=== PATIENT | female | born 1985 | race Caucasian/White ===

== ENCOUNTER 2021-08-05 08:58 | Outpatient (REF) | payer OTHER, SELFPAY ==
[2021-08-05 11:52] LABS: Appearance Urine CLOUDY; Color Urine YELLOW; Glucose Urine UA NEG (NEG); Leukocyte Esterase Urine NEG (NEG); Nitrite Urine NEG (NEG); PH 7.5 (5.0-8.0); Specific Gravity - Urine 1.015 (1.005-1.025); Urine Blood 3+ (NEG); Urine Ketones NEG (NEG); Urine Protein TRACE MG/DL (NEG-TRACE)
[2021-08-05 11:53] LABS: Hematocrit 41.2 % (37.0-47.0); Hemoglobin 13.4 g/dl (12.0-16.0); Mean Corpuscular HGB Conc 32.5 g/dl (31.0-35.0); Mean Corpuscular Hemoglobin 29.9 pg (27.0-33.0); Mean Platelet Volume 10.2 fL (9.4-12.3); Platelet Count 339 X10*3/uL (160-400); Red Blood Count 4.48 X10*6/uL (4.20-5.50); Red Cell Distribution Width 12.7 % (11.0-16.0); White Blood Count 6.6 X10*3/uL (4.8-10.8)
[2021-08-05 12:16] LABS: Alanine Aminotransferase 25 U/L (0-31); Albumin Level 4.2 g/dL (3.5-5.0); Alkaline Phosphatase 62 U/L (39-117); Anion Gap 13 (12-20); Aspartate Amino Transferase 23 U/L (5-31); Bilirubin Total 0.4 mg/dL (0.0-1.0); Blood Urea Nitrogen 13 mg/dL (9-16); Carbon Dioxide 22 mmol/L (22-29); Chloride 108 mmol/L (96-108); Cholesterol 141 mg/dL; Estimated Glomerular Filt Rate > 60; Glucose Fasting 96 mg/dL (60-99); HDL Cholesterol 48 mg/dL; LDL Cholesterol Calculated 80 mg/dl; Potassium 4.3 mmol/L (3.3-5.1); Sodium 139 mmol/L (135-145); Total Protein 6.7 g/dL (6.5-8.0); Triglycerides 66 mg/dL
[2021-08-05 13:16] LABS: Amorphous Sediment Urine 2+ /LPF; Squamous Epithelial Cell Urine 1+ /LPF; WBC Urine 0 /HPF (0-4)
[2021-08-05 13:17] LABS: Bacteria Urine 1+ /LPF
== END 2021-08-05 08:59 | disposition home or self-care (01) ==
LOC: HO.HMGCLDS 08:58
PROVIDERS: PCP Internal Medicine; Visit Provider Internal Medicine
DX: Z00.00 Encounter for general adult medical examination without abnormal findings (principal); E66.3 Overweight
CPT/HCPCS: 36415; 80053; 80061; 81001; 85027

== ENCOUNTER 2021-08-29 13:50 | Outpatient (REF) | payer OTHER, SELFPAY ==
[2021-08-29 16:20] LABS: Appearance Urine CLOUDY; Color Urine YELLOW; Glucose Urine UA NEG (NEG); Leukocyte Esterase Urine NEG (NEG); Nitrite Urine NEG (NEG); Urine Blood 3+ (NEG); Urine Ketones NEG (NEG); Urine Protein NEG (NEG-TRACE)
[2021-08-29 16:26] LABS: Amorphous Sediment Urine 4+ /LPF; Calcium Oxalate Crystals Urine 3+ /LPF; RBC Urine 0 /HPF (0); Squamous Epithelial Cell Urine 1+ /LPF; WBC Urine 0 /HPF (0-4)
== END 2021-08-29 13:51 | disposition home or self-care (01) ==
LOC: HO.HMGCLDS 13:50
PROVIDERS: Visit Provider Internal Medicine
DX: R31.9 Hematuria, unspecified (principal)
CPT/HCPCS: 81001

== ENCOUNTER 2023-01-22 09:22 | Outpatient (AMB) | payer OTHER, SELFPAY ==
--- NOTE | 2023-01-22 09:29 | A.OFFPC_ITS ---
Vital Signs 01/22/23 09:30 Height 5 ft 6 in Weight 251 lb BMI 40.5 BP 108/68 Blood Pressure Location Lt brachial Position Sitting Pulse 98 Pulse Source Pulse Oximeter Pulse Oximetry (%) 99 Oxygen Delivery Method Room Air Intake Visit Reasons: Annual Physical Intake Note: Pt is here today for PE. Allergies azithromycin Allergy (Unknown, Verified 01/22/23 09:32) stomach upset Medication List - Last Reconciled 01/22/23 by Nan Madison MD albuterol sulfate 90 mcg/actuation 2 puffs inhalation Q6H PRN buspirone 7.5 mg PO BID cholecalciferol (vitamin D3) 25 mcg PO DAILY clobetasol 0.05% 1 appl topical BID 2 weeks magnesium 250 mg PO DAILY multivitamin 1 tab PO DAILY omeprazole 20 mg PO DAILY Tobacco use date assessed: 01/22/23 Dental Screening Dental Screen Date: 01/22/23 Did you have a dental visit in the last 12 months?: Yes Did you have a dental problem in the last 6 months where you did not have access to dental care?: No Was dental information given to patient?: Patient has dentist HPI Annual Physical HPI Details Pt presents for PE. Pt is trying to get working with her gynecology teacher. She complains of more frequent heartburn worse at night when laying down. Patient has been taking Pepcid AC without sustained relief. Patient denies odynophagia dysphagia hematochezia melena. 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 Patient denies pain at rest or soft tissue swelling. Patient follows up with therapist for chronic anxiety and depression and denies suicidal ideation. She is planning to see a prescriber to discuss ADHD treatment. [facility] Medical History (Updated 01/22/23 @ 10:25 by Nan Madison MD) Hematuria Normal pelvic exam Anxiety Insomnia Overweight Annual physical exam Family History Father ADHD Mother Substance use disorder Mental health disorder Maternal Grandmother Substance use disorder Esophageal cancer Maternal Uncle Esophageal cancer Maternal Aunt Breast cancer Social History Housing: House Patient Tobacco Use Status: Former Tobacco user e-Cigarette/Vaping Use: Never Used Second Hand Smoke Exposure: No service: No Current occupational status: employed Cognitive needs: No Hearing needs: No Vision needs: Yes Questionnaire PHQ-9 Over the last 2 weeks, how often have you been bothered by any of the following problems? 1. Little interest or pleasure in doing things: more than half the days 2. Feeling down, depressed, or hopeless: several days 3. Trouble falling or staying asleep, or sleeping too much: nearly every day 4. Feeling tired or having little energy: nearly every day 5. Poor appetite or overeating: nearly every day 6. Feeling bad about yourself - or that you are a failure or have let yourself or your family down: several days 7. Trouble concentrating on things, such as reading the newspaper or watching television: more than half the days 8. Moving or speaking so slowly that other people could have noticed. Or the opposite - being so fidgety or restless that you have been moving around a lot more than usual: several days 9. Thoughts that you would be better off or of hurting yourself in some way: not at all Total score: 16 Depression Screening Interpretation: Positive 61522 - PHQ-9 Billing: Yes Source: Developed by Drs. Ezra Peoples, Ade Marquez, David Fried and colleagues, with an educational kerry from [employer]. Thrive Questionnaire Date Thrive assessed: 01/22/23 I am a: Patient What is your living situation today?: I have a steady place to live Within the past 12 months, did the food you bought not last and you didn't have the money to get more?: Never true Within the past 12 months, did you worry whether your food would run out before you got money to buy more?: Never true Do you have trouble paying for medicines?: No Do you have trouble getting transportation to medical appointments?: No Do you have trouble paying your heating and electricity bill?: No Do you have trouble taking care of your child, family member or friend?: No Do you have trouble with day-to-day activities such as bathing, preparing meals, shopping, managing finances, etc.?: Yes Are you currently unemployed and looking for a job?: No Are you interested in more education?: No Currently or been in a relationship where the following occur: no concerns reported AUDIT C Alcohol Use Questionnaire (AUDIT-C) 1. How often do you have a drink containing alcohol?: 2-3 times a week 2. How many drinks containing alcohol do you have on a typical day when you are drinking?: 3 or 4 3. How often do you have six or more drinks on one occasion?: Never Total Score: 4 MADISON-7 AMB Questionnaire MADISON-7 Date MADISON - 7 assessed: 01/22/23 Feeling nervous, anxious, or on edge: 2 = More than half the days Not being able to stop or control worryin = More than half the days Worrying too much about different things: 2 = More than half the days Trouble relaxin = Nearly every day Being so restless that it is hard to sit still: 2 = More than half the days Becoming easily annoyed or irritable: 1 = Several days Feeling afraid as if something awful might happen: 1 = Several days Total MADISON-7 score (0-4 normal; 5-9 mild; 10-14 moderate; 15-21 severe): 13 Source: Developed by Drs. Ezra Peoples, Ade Marquez, David Fried and colleagues, with an educational kerry from [employer]. Review of Systems Const All systems reviewed & are unremarkable except as noted in HPI and below Reports no additional complaints Eyes Reports no additional complaints Card Reports no additional complaints Resp Reports no additional complaints GI Reports no additional complaints Reports no additional complaints Physical exam (Primary Care) Vital Signs: Last Vital Signs Pulse 98 01/22/23 09:30 BP 108/68 01/22/23 09:30 Pulse Ox 99 01/22/23 09:30 Oxygen Delivery Method Room Air 01/22/23 09:30 BMI result Body Mass Index 40.5 Tobacco/Smoking Status: Tobacco use Status Tobacco use date assessed 01/22/23 01/22/23 09:38 Patient Tobacco Use Status Former Tobacco user 01/22/23 09:29 e-Cigarette/Vaping Use Never Used 01/22/23 09:29 PHQ-9: PHQ-9 Score PHQ-9: Total score 16 01/22/23 10:18 Depression Screening Interpretation: Positive Thrive Assessment: Date of Thrive Assessment Date Thrive assessed 01/22/23 01/22/23 10:14 Currently or been in a relationship where the following occur: no concerns reported Const General: no acute distress HENMT Head: Yes normal to inspection Ears: hearing grossly normal bilaterally Face and sinus: Yes normal facial exam Mouth: Normal oral and palatal mucosa present Teeth and gingiva: dentition normal Eyes General: appearance normal, both eyes and all related structures Neck Neck: Yes no lymphadenopathy and Yes supple Resp Effort & Inspection: normal respiratory effort Auscultation: clear to auscultation bilaterally Cardio Rhythm: regular rhythm Heart sounds: S1 normal heart sound present and S2 normal heart sound present GI Inspection: Yes normal to inspection Palpation (GI): Soft to palpation Percussion: Yes normal to percussion Auscultation: normal bowel sounds Extrem Other: reproducible tenderness in the lateral dorsum of left foot, there is no soft tissue swelling erythema warmth Assessment and Plan Assessment & Plan (1) Annual physical exam: Code(s): Z00.00 - Encounter for general adult medical examination without abnormal findings Plan: Well-balanced diet and regular physical activity discussed with the patient. she will return for fasting blood work. Patient follow-up with gynecology teacher for annual pelvic and Pap (2) Overweight: Code(s): E66.3 - Overweight (3) Foot pain, left: Code(s): M79.672 - Pain in left foot Plan: Referred to physical therapy (4) GERD (gastroesophageal reflux disease): Code(s): K21.9 - Gastro-esophageal reflux disease without esophagitis Plan: Lifestyle modification discussed with the patient. Omeprazole 20 mg for 2 months is prescribed Orders: Orders Comprehensive [place]. Panel Fast Today E66.3 - Overweight, Z00.00 - Encounter for general adult medical examination without abnormal findings Complete Blood Count Auto Diff Today E66.3 - Overweight, Z00.00 - Encounter for general adult medical examination without abnormal findings Lipid Panel Today E66.3 - Overweight, Z00.00 - Encounter for general adult medical examination without abnormal findings TSH reflex Free T4 Today E66.3 - Overweight, Z00.00 - Encounter for general adult medical examination without abnormal findings PT Evaluation and Treatment Today M79.672 - Pain in left foot Medications: New omeprazole 20 mg PO DAILY 30 caps 1RF clobetasol 0.05% 1 appl topical BID 30 grams 0RF 2 weeks Coding Level of Care Code Est Pt Prev Care 18-39y(54068) Diagnoses Annual physical exam Z00.00 Overweight E66.3 Foot pain, left M79.672 GERD (gastroesophageal reflux disease) K21.9
[2023-01-22 09:30] VITALS: BP 108/68; PULSE 98; O2SAT 99; BMI 40.5
== END 2023-01-22 10:29 | disposition home or self-care (01) ==
PROVIDERS: PCP Internal Medicine; Visit Provider Internal Medicine
DX: Z00.00 Encounter for general adult medical examination without abnormal findings (principal); E66.3 Overweight; M79.672 Pain in left foot; K21.9 Gastro-esophageal reflux disease without esophagitis
CPT/HCPCS: 99395

== ENCOUNTER 2023-05-04 07:00 | Outpatient (RCR) | payer OTHER, SELFPAY ==
--- NOTE | 2023-04-20 10:46 | MHC.PT.EP ---
[facility] [place] Office [place] Office [place] Office [address] [phone] F: [phone] F: [phone] F: [phone] F: [phone] Physical Therapy Plan of Care Date of Evaluation: 04/20/23 Date of Surgery: n/a Diagnosis: pain in L foot Assessment: Patient is a 37 year old female presenting to PT with complaints of pain in her L foot. Pt reports onset of pain began about 9 months ago due to insidious onset. She presents today with impairments in pain, ankle strength, balance. 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 Pt expresses residential goal of reducing pain, and is motivated to work towards this in PT. Clinical presentation today is most consistent with signs and sx associated with L foot pain and pt will benefit from skilled PT 2 week x 4 weeks to address the following problems and impairments noted upon evaluation: pain, ankle strength, balance. These problems limit the patient with the following functional activities: ADLs, ambulating. The prescribed treatment plan of care is medically necessary. Co-morbidities of none were identified and taken into considerations of plan of care. Pt was educated on HEP, role of PT, prognosis, POC. Frequency and Duration: The patient will be seen 2 x week x 4 weeks Short Term Goals: Pt will demonstrate ability to perform SLS with no pain in 2 weeks. Pt will demonstrate improved inversion and eversion MMT strength by 1/3 grade in 2 weeks. Robotics Specialist Goals: Pt will demonstrate improved LEFI score by 9 points in 4 weeks for improved functional mobility. Pt will demonstrate ability to ambulate community distances with min to no pain in 4 weeks for return to PLOF. Treatment Plan: Modalities to reduce pain, spasms and effusion. Manual therapy to restore motion and function. Therapeutic exercise to improve strength and flexibility. Neuromuscular re-education for posture and balance. Therapeutic activities to return to functional activities of daily living. Electronically signed by: Beverley Sequeira, PT, DPT, ATC Please sign and return to therapist. Thank you for your referral.
--- NOTE | 2023-06-04 13:58 | MHC.PT.DC ---
[facility] [place] Office [place] Office [place] Office [address]ine Valera [address] [phone] F: [phone] F: [phone] F: [phone] F: [phone] Physical Therapy Discharge Report Diagnosis: pain in L foot Date of Surgery: n/a Date of Evaluation: 04/20/23 Date of Discharge: 06/04/23 Treatments to Date: 3 Cancellations to Date: 1 No Shows to Date: 0 Discharge Status: Discharge Summary: Pt has not returned to skilled PT in >30 days. Pt to be d/c per policy. Electronically signed by: Beverley Sequeira, PT, DPT, ATC Please sign and return to therapist. Thank you for your referral.
== END 2023-06-04 13:58 | disposition home or self-care (01) ==
LOC: HO.PTCHIC 07:00
PROVIDERS: PCP Internal Medicine; Visit Provider Internal Medicine
DX: M79.672 Pain in left foot (principal)
CPT/HCPCS: 97110; 97112; 97161

== ENCOUNTER 2024-12-26 11:15 | Outpatient (AMB) | payer OTHER, SELFPAY ==
[2024-12-26 12:05] VITALS: BP 96/66; PULSE 73; TEMP 36.7; O2SAT 97; BMI 39.4
--- NOTE | 2024-12-26 12:05 | MHC.OFFWIV ---
Intake Vital Signs 12/26/24 12:05 Height 5 ft 6 in Weight 244 lb BMI 39.4 BP 96/66 Blood Pressure Location Rt brachial Position Sitting Pulse 73 Pulse Source Pulse Oximeter Temp 98.1 F Temp Source Oral Pulse Oximetry (%) 97 Oxygen Delivery Method Room Air Intake Visit Reasons: ep pain in neck upper back shoots down lft arm Patient Tobacco Use Status: Former Tobacco user Allergies azithromycin Allergy (Unknown, Verified 12/26/24 12:07) stomach upset Do you need a note to return to daycare/school/sports/work: No HPI ep pain in neck upper back shoots down lft arm HPI Details This is a 39-year-old female patient who presents to the walk-in clinic today with a 6 day history of left-sided neck pain with radiation down her left arm. She denies any inciting events or trauma to this. She denies any recent heavy lifting. Pain is worse with left side bending and flexion. She reports a constant dull ache on the inner aspect of her left upper arm, and occasionally, pain will shoot down arm and extend to left 4th and 5th digits. She denies any weakness. Denies any other complaints today. [facility] Medical History Hematuria Normal pelvic exam Anxiety Insomnia Overweight Annual physical exam Family History Father ADHD Mother Substance use disorder Mental health disorder Maternal Grandmother Substance use disorder Esophageal cancer Maternal Uncle Esophageal cancer Maternal Aunt Breast cancer Social History Housing: House Patient Tobacco Use Status: Former Tobacco user e-Cigarette/Vaping Use: Never Used Second Hand Smoke Exposure: No service: No Current occupational status: employed Cognitive needs: No Hearing needs: No Vision needs: Yes Review of Systems Const All systems reviewed & are unremarkable except as noted in HPI and below Physical Exam Vital Signs: Last Vital Signs Temp 98.1 F 12/26/24 12:05 Pulse 73 12/26/24 12:05 BP 96/66 12/26/24 12:05 Pulse Ox 97 12/26/24 12:05 Oxygen Delivery Method Room Air 12/26/24 12:05 BMI result Body Mass Index 39.4 Const General: cooperative, healthy appearing, comfortable and no acute distress HEENT Head: Yes normal to inspection and Yes normocephalic Ears: hearing grossly normal bilaterally General nose exam: Normal external nose present Neck Neck: Yes no lymphadenopathy Resp Effort & Inspection: normal respiratory effort Cardio Rate: regular rate Rhythm: regular rhythm Back/Spine/Pelvis Other: reported pain in medial aspect of left upper arm with radiation down to left 4th/5th digit. Negative spurling, Increased pain in that distribution with cervical left side bending, right lateral rotation. Left trap/rhomboid tautness/tenderness. Skin General skin exam: no rashes or lesions noted Neuro General: tone normal, moves all extremities and no focal motor deficits Extrem General: Yes capillary refill normal and Yes no clubbing, cyanosis or edema Psych Appearance: grossly normal Mental Status: mental status grossly normal Speech and movement: Normal speech and movement present Assessment & Plan Assessment & Plan (1) Left cervical radiculopathy: Code(s): M54.12 - Radiculopathy, cervical region Plan: Symptoms consistent with a left C7/T1 radiculopathy. We discussed conservative measures for treatment at this time, including NSAIDs, which I have prescribed, gentle stretching, heat application, possible course of physical therapy. Patient is going to try these at home, and if she does not improve with these conservative measures, she will contact her PCP for physical therapy referral. If this persists, she may benefit from seeing a spine or automotive painter helper for further imaging/evaluation and possible injection therapy. In the meantime, if symptoms worsen or new symptoms develop, she can return to the clinic or the emergency department for evaluation. Patient verbalizes understanding and agrees to plan. Medications: New meloxicam Take 1 tablet by mouth daily for 7 days 15 mg PO DAILY 7 tabs 0RF 7 days M54.12 - Radiculopathy, cervical region Coding Level of Care Code Est Pt Level 4 (67597) Diagnoses Left cervical radiculopathy M54.12
--- OUTSIDE RECORDS SUMMARY | 2024-12-26 12:24 | XMS_ITS | Encounter Summary ---
Author Organization Merged With [facility] Address [address] [place] [phone] Phone Care Team Providers Care Sample Processor Name Role Phone Live Delcid MD Primary Care Provide r Encounter Details Date Type Department Care Team (Late st Contact Info) Description 07/06/2016 Ophth Exam [facility] [address] [place] [address] Laith Vora MD, MPH [address] [place] [address] [email or web address] Social History Tobacco Use Types Packs/Day Years Used Date Smoking Tobacco: Heavy Smoker Alcohol Use Standard Drinks/Week Comments Yes 0 (1 standard drink = 0.6 oz pur e alcohol) social Comments Unknown Sex and Gender Information Value Date Recorded Sex Assigned at Not on file Legal Sex Female 6:53 PM EST Gender Identity Not on file Sexual Orientation Not on file documented as of this encounter Plan of Treatment Not on file documented as of this encounter Visit Diagnoses Not on filedocumented in this encounter Care Teams Sample Processor Relationship Specialty Start Date End Date Live Delcid MD [address] [place] [address] [email or web address] PCP - General 05/18/16 documented as of this encounter Additional Source Comments The information contained in this document represents components of the legal health record. It is not the complete legal health record.[facility]
--- OUTSIDE RECORDS SUMMARY | 2024-12-26 12:24 | XMS_ITS | Clinical Summary ---
Author Organization [facility] [address] [place] [address] Address [address] [facility] [place] [address] Phone Care Team Providers Care Valve Pipe Irrigator Name Role Phone Norman Rodriguez MD Primary Care Provider Allergies Active Allergy Reactions Criticality Noted Date Comments Azithromycin Diarrhea,Nausea And Vomiting High 04/17 Medications omeprazole OTC (PriLOSEC OTC) 20 mg EC tablet Take 1 tablet (20 mg total) by mouth 1 (one) time each day. Do not crush, chew, or split. Active multivitamin with minerals tablet Take 1 tablet by mouth 1 (one) time each day. Active cetirizine (ZyrTEC) 10 mg tablet Take 1 tablet (10 mg total) by mouth 1 (one) time each day. [employer] brand Active FreeStyle Lite Meter monitoring kitIndications: New onset type 2 diabetes mellitus (CMS/HCC V24, CMS/HCC V28) 1 each 3 (three) times a week. Use to test blood sugar 3 times per week 1 each 08/29/2024 08/30/19 26 Active blood sugar diagnostic (FreeStyle Lite Strips) test stripIndication s:New onset type 2 diabetes mellitus (CMS/HCC V24, CMS/HCC V28) Use ti test blood sugar 3 times a week 100 each 3 08/28/2024 08/29/19 26 Active FreeStyle Lancets 28 gauge lancetsIndicati ons:New onset type 2 diabetes mellitus (CMS/HCC V24, CMS/HCC V28) Use to test blood sugar 3 times a week 100 each 3 08/28/2024 08/29/19 26 Active sertraline (ZOLOFT) 25 mg tablet TAKE 2 TABLETS BY MOUTH 1 TIME EACH DAY. 180 tablet 1 11/24/2024 Active ibuprofen (ADVIL,MOTRIN) 600 mg tablet Take 1 tablet (600 mg total) by mouth every 6 (six) hours if needed. for mild pain 10/11/2024 Active albuterol sulfate 90 mcg/actuation aerosol powdr breath activated Inhale by mouth. 05/12/2019 Active Hospital, Clinic, or Other Facility Administered Medication Ordered Dose Route Frequency Start Date End Date Status lidocaine (PF) (XYLOCAINE-MPF) 1 % injection 0.5 mLIndications:Planta r fascial fibromatosis .5 mL inj Once PRN Procedure 12/01/2024 12/01/2024 Ended triamcinolone acetonide (KENALOG-40) 40 mg/mL injection 20 mgIndications:Planta r fascial fibromatosis 20 mg IAtc Once PRN Procedure 12/01/2024 12/01/2024 Ended Active Problems Problem Noted Date Diagnosed Date Type 2 diabetes mellitus wit h morbid obesity ([facility] V24, [facility] V28) 11/25/2024 New onset type 2 diabetes me llitus ([facility] V24, [facility] V28) 08/26/2024 Asthma 08/13/2024 Persistent depressive disorder 07/15/2024 Gastroesophageal reflux disease 07/15/2024 Encounters Date Type Department Care Team Description 12/01/2024 2:45 PM EDT Office Visit Orthopedic Surgery - [address] [phone] Lester Schwartz DPM Tendinitis of left ankle (Primary Dx); Follow-up exam; Plantar fascial fibromatosis; Arthritis of left ankle; Metatarsalgia of both feet; Metatarsalgia of left foot 11/25/2024 1:00 PM EDT Office Visit Adult Medicine [address] [phone] Norman Rodriguez MD New onset type 2 diabetes mellitus ([facility] V24, [facility] V28) (Primary Dx); Need for vaccination against Streptococcus pneumoniae; Type 2 diabetes mellitus with morbid obesity ([facility] V24, [facility] V28) 11/18/2024 2:40 PM EDT Office Visit Gastroenterology [facility] [address] [facility] [address] [place] [phone] Cele Zimmerman PA Hiatal hernia with GERD without esophagitis (Primary Dx) 10/23/2024 10:45 AM EDT Office Visit Orthopedic Surgery [facility] [address] [facility] [address] [place] [phone] Lester Schwartz, DPM Metatarsalgia of left foot (Primary Dx); Metatarsalgia of both feet; Tendinitis of left ankle; Plantar fascial fibromatosis; Arthritis of left ankle from Last 3 Months Immunizations Name Administration Dates Next Due Pneumococcal conjugate 20 va lent (Prevnar 20, PCV 20) 2mo and older 11/25/2024 Tdap Tetanus diptheria acell ular pertussis (Boostrix; Adacel) 7yo and older 07/15/2024 Surgical History Surgery Date Site/Laterality Comments LASIK Medical History Medical History Date Comments Depression GERD (gastroesophageal reflux disease) Asthma Family History Medical History Relation Name Comments Diabetes type II Father abnormal pap smear Sister Relation Name Status Comments Father Sister Social History Tobacco Use Types Packs/Day Years Used Date Smoking Tobacco: Former Cigarettes Q uit: 07/15/2018 Smokeless Tobacco: Former Tobacco Cessation:Counseling Given: Not Answered Alcohol Use Standard Drinks/Week Comments Yes 0 (1 standard drink = 0.6 oz pur e alcohol) socially 1-2 drinks/week Housing Instability Answer Date Recorde d Are you worried that in the next 2 months you may not have stable housing? No 07/15/2024 Food Access & Nutrition Answer Date Rec orded Do you have access to a vari ety of food including fruits and vegetables? Yes 07/15/2024 Access to Healthcare Answer Date Record ed Within the last 3 months, james mata many times did you visit the emergency department for your medical care? 0 07/15/2024 Financial Risk Answer Date Recorded How hard is it for you to pa y for the very basics like food, housing, medical care, and air conditioning / heating? Not very hard 07/15/2024 Transportation Answer Date Recorded Has the lack of transportati on kept you from meetings, work, or from getting things needed for daily living? No Has the lack of transportati on kept you from medical appointments or from getting medications? No 07/15/2024 Social Isolation Answer Date Recorded How often do you feel lonely or isolated from th ose around you? Never 07/15/2024 Food Risk Answer Date Recorded Within the past 12 months we worried whether our food would run out before we got money to buy more. Never true 07/15/2024 Within the past 12 months th e food we bought just didn't last and we didn't have money to get more. Never true 07/15/2024 Dependent Care Answer Date Recorded Do you need help finding or paying for care for your loved ones. For example, early childhood teacher assistant or elderly care for an older adult? No 07/15/2024 Education Answer Date Recorded Do you think completing more education or training, like finishing a GED, going to college, or learning a trade, would be helpful for you? No 07/15/2024 Employment and Income Answer Date Recor ded During the last four weeks, have you been actively looking for work? No 07/15/2024 Living Situation Answer Date Recorded What is your living situation? 0 07/15/2024 Interpersonal Safety Answer Date Record ed Physical Abuse 08/13/2024 Verbal Abuse 08/13/2024 Comments No Sex and Gender Information Value Date Recorded Sex Assigned at Not on file Legal Sex Female 3:02 PM EDT Gender Identity Not on file Sexual Orientation Not on file Obstetrics History Last Filed Vital Signs Vital Sign Reading Time Taken Comments Blood Pressure 86/57 11/25/2024 1:06 PM EDT Pulse 67 11/25/2024 1:06 PM EDT Temperature 36.2 C (97.2 F) 11/25/2024 1:06 PM EDT Respiratory Rate 15 11/25/2024 1:06 PM EDT Oxygen Saturation 98% 11/18/2024 2:55 PM EDT Inhaled Oxygen Concentration - - Weight 113 kg (248 lb 8 oz) 11/25/2024 1:06 PM E DT Height 166.4 cm (5' 5.5 ) 11/25/2024 1:06 PM EDT Body Mass Index 40.72 11/25/2024 1:06 PM EDT Plan of Treatment Upcoming Encounters Date Type Department Care Team (Late st Contact Info) Description 01/15/2025 10:45 AM EDT Office Visit Orthopedic Surgery - [place] [address] [facility] [address] [place] [phone] Lester Schwartz, DPM [address] [facility] [address] [place] [address] 04/02/2025 9:30 AM EST Office Visit Adult Medicine [facility] [address] [place], [place] [phone] Norman Rodriguez MD [address] [place], [place] 05/25/2025 9:30 AM EST Office Visit Gastroenterology - [place] [address] [facility] [address] [facility] [address] [place] [phone] Cele Zimmerman PA [address] [place] [phone] Health Maintenance Due Date Last Done Comments Diabetes: Annual Foot Exam 11/12/1997 Diabetes: Annual Retina Eye Exam 11/12/1997 Cervical Cancer Screening: Pap Smear 11/12/2008 COVID-19 Vaccine (2023-05 5 season) 2023 03/10/2021, 08/13/2020, 07/16/2020 Influenza Vaccine (#1) 2024 , 01/02/2019, 05/28/2017 Diabetes: Blood Sugar Contro l Test (HGBA1C) 05/27/2025 11/24/2024, 08/22/2024 Social Influencers of Health Screening 07/15/2025 07/15/2024 Diabetes: Annual Urine Albumin-Creatinine Ratio (uACR) 11/24/2025 11/24/2024 Diabetes: Annual GFR (Glomerular Filtration Rate) 11/24/2025 11/24/2024, 08/22/2024 Cholesterol Screening (Lipid Panel) 08/22/2029 08/22/2024 DTaP,Tdap,and Td Vaccines (2 - Td or Tdap) 07/15/2034 07/15/2024 HPV Vaccines Discontinued 01/01/2013 Hepatitis B Vaccines Discontinued 01/01/2013 MMR Vaccines Aged Out 01/02/2019, 01/01/2013 No longer eligible based on patient's age to complete this topic HIV Screening Completed 08/22/2024 Hepatitis C Screening Completed 08/22/2024 Depression Screening Completed 08/26/2024 Pneumococcal Vaccine: Pediatrics (0 to 5 Years) and At-Risk Patients (6 to 49 Years) Completed 11/25/2024 HIB Vaccines Aged Out No longer eligi ble based on patient's age to complete this topic Hepatitis A Vaccines Aged Out No long er eligible based on patient's age to complete this topic IPV Vaccines Aged Out No longer eligi ble based on patient's age to complete this topic Meningococcal ACWY Vaccine Aged Out N o longer eligible based on patient's age to complete this topic Meningococcal B Vaccine Aged Out No l onger eligible based on patient's age to complete this topic RSV Immunization Patients Under 20 months Aged Out No longer eligible based on patient's age to complete this topic Varicella Vaccines Aged Out No longer eligible based on patient's age to complete this topic Procedures Procedure Name Priority Date/Time Associated Diagnosis Comments XR FOOT 3+ VIEWS BILAT Routine 3:07 PM EDT Follow-up exam INJECTION TENDON OR LIGAMENT Routine 12/01/2024 2:45 PM EDT Plantar fascial fibromatosis MICROALBUMIN CREATININE URINE RATIO Routine 11/24/2024 10:48 AM EDT New onset type 2 diabetes mellitus (CMS/HCC V24, CMS/HCC V28) COMPREHENSIVE METABOLIC PANEL Routine 11/24/2024 10:48 AM EDT New onset type 2 diabetes mellitus (CMS/HCC V24, CMS/HCC V28) HEMOGLOBIN A1C Routine 11/24/2024 10:48 AM EDT New onset type 2 diabetes mellitus (CMS/HCC V24, CMS/HCC V28) INJECTION TENDON OR LIGAMENT Routine 10/23/2024 10:45 AM EDT Plantar fascial fibromatosis Arthritis of left ankle INJECTION TENDON OR LIGAMENT Routine 10/23/2024 10:45 AM EDT Plantar fascial fibromatosis Arthritis of left ankle HEPATITIS C ANTIBODY Routine 08/22/2024 11:29 AM EDT Need for hepatitis C screening test HIV 1, 2 ANTIBODY, P24 ANTIGEN WITH REFLEX TO DIFFERENTIATION Routine 08/22/2024 11:29 AM EDT Encounter for screening for HIV LIPID PANEL WITH REFLEX TO DIRECT LDL Routine 08/22/2024 11:29 AM EDT Screening for lipid disorders from Last 3 Months or Most Recently Relevant to Health Maintenance Results * XR Foot 3+ Views bilat (12/01/2024 3:07 PM EDT) Anatomical Region Laterality Modality Lower Extremities, Foot Bilateral Computed Radiography Narrative 12/01/2024 6:04 PM EDT Right foot 3 views No fracture. No radiopaque foreign joint spaces normal Foot position Pes planus with Talus navicular uncovering decreased calcaneal inclination anterior displaced symes line talus navicular joint to calcaneal cuboid joint Left foot 3 views No fracture. No radiopaque foreign joint spaces normal Foot position Pes planus with Talus navicular uncovering decreased calcaneal inclination anterior displaced symes line talus navicular joint to calcaneal cuboid joint Lester Schwartz DPM IMG XR PROCEDURES Final R esult * Injection tendon or ligament (12/01/2024 2:45 PM EDT) Narrative Lester Schwartz DPM - 12/01/2024 2:45 PM EDT Lester Schwartz DPM 12/01/2024 6:05 PM Injection tendon or ligament Indications: pain Details: 25 G needle Medications: 0.5 mL lidocaine (PF) 1 %; 20 mg triamcinolone acetonide 40 mg/mL Informed Consent: Site: Foot ligament tendon Lester Schwartz DPM IN CLINIC/BEDSIDE ORDERAB LES Final Result * Microalbumin creatinine urine ratio (11/24/2024 10:48 AM EDT) Creatinine, Urine 182.0 mg/dL LAB CHEMISTRY METHOD 11/24/2024 2:18 PM EDT [facility] Microalb, Ur 11.6 0.0 - 29.0 mg/L LAB CHEMISTRY METHOD 11/24/2024 2:18 PM EDT [facility] Microalb/Creat Ratio 6 <30 mg/g creat LAB CHEMISTRY METHOD 11/24/2024 2:18 PM EDT [facility] Urine Urine specimen obtained by clean catch procedure / Unknown Non-blood Collection / Unknown 11/24/2024 10:48 AM EDT 11/24/2024 10:48 AM EDT Norman Rodriguez MD LAB URINE ORDERABLES F inal Result Performing Organization Address City/[facility]/ZIP Co de Phone Number [facility] [address] [place] [address], [place] [phone] * (ABNORMAL) Hemoglobin A1c (11/24/2024 10:48 AM EDT) Hemoglobin A1C 6.5(H) <6.5 % LAB CHEMISTRY METHOD 11/24/2024 2:05 PM EDT [facility] Mean Bld Glu Estim. 140 mg/dL LAB CHEMISTRY METHOD 11/24/2024 2:05 PM EDT [facility] Blood Venous blood specimen / Unknown Venipuncture / Unknown 11/24/2024 10:48 AM EDT 11/24/2024 10:48 AM EDT us Norman Rodriguez MD LAB BLOOD ORDERABLES F inal Result [facility] [address] [place] [address], [place] [phone] * (ABNORMAL) Comprehensive metabolic panel (11/24/2024 10:48 AM EDT) [facility] Signature Sodium 139 133 - 145 mmol/L LAB CHEMISTRY METHOD 11/24/2024 2:58 PM [facility] Potassium 4.0 3.5 - 5.5 mmol/L LAB CHEMISTRY METHOD 11/24/2024 2:58 PM [facility] Chloride 108 96 - 110 mmol/L LAB CHEMISTRY METHOD 11/24/2024 2:58 PM [facility] CO2 27 21 - 32 mmol/L LAB CHEMISTRY METHOD 11/24/2024 2:58 PM [facility] Anion Gap 4 3 - 11 LAB CHEMISTRY METHOD 11/24/2024 2:58 PM [facility] Glucose 112(H) 70 - 100 mg/dL LAB CHEMISTRY METHOD 11/24/2024 2:58 PM [facility] BUN 10 5 - 25 mg/dL LAB CHEMISTRY METHOD 11/24/2024 2:58 PM [facility] Creatinine 0.91 0.50 - 1.10 mg/dL LAB CHEMISTRY METHOD 11/24/2024 2:58 PM [facility] eGFR 84 >=60 mL/min/1. 73m2 LAB CHEMISTRY METHOD 11/24/2024 2:58 PM [facility] Comment:Calculation based on the Chronic Kidney Disease Epidemiology Collaboration (CKD-EPI) equation refit without adjustment for race. BUN/Creatinine Ratio 11.0 LAB CHEMISTRY METHOD 11/24/2024 2:58 PM [facility] Calcium 9.4 8.5 - 10.5 mg/dL LAB CHEMISTRY METHOD 11/24/2024 2:58 PM [facility] AST (SGOT) 17 10 - 42 unit/L LAB CHEMISTRY METHOD 11/24/2024 2:58 PM EDT [facility] ALT (SGPT) 35 10 - 60 unit/L LAB CHEMISTRY METHOD 11/24/2024 2:58 PM EDT [facility] Alkaline Phosphatase 121 42 - 121 unit/L LAB CHEMISTRY METHOD 11/24/2024 2:58 PM EDT [facility] Total Protein 6.8 6.0 - 8.0 g/dL LAB CHEMISTRY METHOD 11/24/2024 2:58 PM EDT [facility] Albumin 3.7 3.2 - 5.0 g/dL LAB CHEMISTRY METHOD 11/24/2024 2:58 PM EDT [facility] Total Bilirubin 0.4 0.0 - 1.4 mg/dL LAB CHEMISTRY METHOD 11/24/2024 2:58 PM EDT [facility] Blood Venous blood specimen / Unknown Venipuncture / Unknown 11/24/2024 10:48 AM EDT 11/24/2024 10:48 AM EDT Norman Rodriguez MD LAB BLOOD ORDERABLES F inal Result [facility] [address] [place] [address], [place] [phone] * Injection tendon or ligament (10/23/2024 10:45 AM EDT) Lester Moreno DPM - 10/23/2024 10:45 AM EDT Lester Schwartz DPM 10/23/2024 12:12 PM Injection tendon or ligament Indications: pain Details: 25 G needle Medications: 0.5 mL lidocaine (PF) 1 %; 20 mg triamcinolone acetonide 40 mg/mL Informed Consent: Site: Foot ligament tendon us Lester Schwartz DPM IN CLINIC/BEDSIDE ORDERAB LES Final Result * Injection tendon or ligament (10/23/2024 10:45 AM EDT) Lester Moreno DPM - 10/23/2024 10:45 AM EDT Lester Schwartz DPM 10/23/2024 12:12 PM Injection tendon or ligament Indications: pain Details: 25 G needle Medications: 0.5 mL lidocaine (PF) 1 %; 20 mg triamcinolone acetonide 40 mg/mL Informed Consent: Site: Foot ligament tendon Lester Schwartz DPM IN CLINIC/BEDSIDE ORDERAB LES Final Result * Hepatitis C antibody (08/22/2024 11:29 AM EDT) Hepatitis C Antibody Negative Negative LAB CHEMISTRY METHOD 08/22/2024 5:37 PM EDT [facility] Blood Venous blood specimen / Unknown Venipuncture / Unknown 08/22/2024 11:29 AM EDT 08/22/2024 11:29 AM EDT Norman Rodriguez MD LAB BLOOD ORDERABLES F inal Result Performing Organization Address [facility] Co de Phone Number [facility] [address] [place] [address], [place] [phone] * HIV 1,2 antibody, p24 antigen with reflex to differentiation (08/22/2024 11:29 AM EDT) [facility] HIV Combo AB/AG Negative Negative LAB CHEMISTRY METHOD 08/22/2024 5:37 PM EDT [facility] Blood Venous blood specimen / Unknown Venipuncture / Unknown 08/22/2024 11:29 AM EDT 08/22/2024 11:29 AM EDT Narrative [facility] - 08/22/2024 5:37 PM EDT This assay is a 4th generation assay allowing for earlier detection of HIV infection by detecting the presence of the HIV-1 p24 antigen as well as the traditional antibodies to HIV type 1 (including group O) and type 2. Use of a 4th generation assay is the current CDC recommendation for HIV screening. us Norman Rodriguez MD LAB BLOOD ORDERABLES F inal Result [facility] [address] [place] [address], [place] [phone] * (ABNORMAL) Lipid panel with reflex to direct LDL (08/22/2024 11:29 AM EDT) Cholesterol 161 0 - 200 mg/dL LAB CHEMISTRY METHOD 08/22/2024 4:04 PM EDT [facility] Triglycerides 152(H) 0 - 150 mg/dL LAB CHEMISTRY METHOD 08/22/2024 4:04 PM EDT [facility] HDL 41 >=40 mg/dL LAB CHEMISTRY METHOD 08/22/2024 4:04 PM EDT [facility] LDL Calculated 90 0 - 100 mg/dL LAB CHEMISTRY METHOD 08/22/2024 4:04 PM EDT [facility] VLDL Cholesterol Eulogio 30.4 mg/dL LAB CHEMISTRY METHOD 08/22/2024 4:04 PM EDT [facility] Non HDL Chol. (LDL+VLDL) 120 <145 mg/dL LAB CHEMISTRY METHOD 08/22/2024 4:04 PM EDT [facility] Chol/HDL Ratio 3.9 0.0 - 4.4 LAB CHEMISTRY METHOD 08/22/2024 4:04 PM EDT [facility] Blood Venous blood specimen / Unknown Venipuncture / Unknown 08/22/2024 11:29 AM EDT 08/22/2024 11:29 AM EDT us Norman Rodriguez MD LAB BLOOD ORDERABLES F inal Result [facility] [address] [place] [address], [place] [phone] from Last 3 Months or Most Recently Relevant to Health Maintenance Insurance [facility] Care Teams Valve Pipe Irrigator Relationship Specialty Start Date End Date Norman Rodriguez MD [address] [place] [phone] PCP - General Internal Medicine 04/07/24
--- OUTSIDE RECORDS SUMMARY | 2024-12-26 12:24 | XMS_ITS | Clinical Summary ---
Author Organization [facility] Address [address] [place] [address] [place] [phone] Phone Care Team Providers Care Art Critic Name Role Phone Live Delcid MD Primary Care Provide r Allergies Active Allergy Reactions Criticality Noted Date Comments Azithromycin Diarrhea,Vomiting High 04/17/2016 Medications prednisoLONE acetate (PRED FORTE) 1 % ophthalmic suspension Place 1 drop into the right eye 4 (four) times a day. 5 mL 7 Active Additional Information Patient taking differently:1 dropEach Eye4 times daily, Reported on 07/14/2016 Active Problems No known active problems Social History Tobacco Use Types Packs/Day Years Used Date Smoking Tobacco: Every Day Comments:6 cigarettes a day Alcohol Use Standard Drinks/Week Comments Yes 0 (1 standard drink = 0.6 oz pur e alcohol) social Education Answer Date Recorded Are you interested in more education? Not on dave e 08/25/2022 Are you concerned about learning? Not on file 08/25/2022 No 08/25/2022 No 08/25/2022 Digital Access Answer Date Recorded No 09/25/2022 No 09/25/2022 No 09/25/2022 Reliable internet access at home? Not on file 09/25/2022 Device with a working camera? Not on file Comments No Sex and Gender Information Value Date Recorded Sex Assigned at Not on file Legal Sex Female 6:53 PM EST Gender Identity Not on file Sexual Orientation Not on file Last Filed Vital Signs Vital Sign Reading Time Taken Comments Blood Pressure 114/79 07/17/2016 10:52 AM EDT Pulse 95 07/17/2016 10:52 AM EDT Temperature 36.8 C (98.3 F) 07/17/2016 10:52 AM EDT Respiratory Rate 18 07/17/2016 10:52 AM EDT Oxygen Saturation 98% 07/17/2016 10:52 AM EDT Inhaled Oxygen Concentration - - Weight 90.7 kg (200 lb) 07/14/2016 12:55 PM EDT Height 167.6 cm (5' 6 ) 07/10/2016 11:49 AM EDT Body Mass Index 32.28 07/10/2016 11:49 AM EDT Plan of Treatment Health Maintenance Due Date Last Done Comments Adult Td,Tdap Booster 1987 DEPRESSION SCREENING 1999 SMOKING Hx and SMOKELESS TOBACCO SCREENING 11/12/2000 HEPATITIS C SCREENING 11/12/2005 HIV ONE-TIME SCREENING (18-6 5 YEARS) 11/12/2005 PNEUMOCOCCAL VACCINES (0-49 years) (1 of 2 - PCV) 11/12/2006 PAP SMEAR 11/12/2008 COVID-19 VACCINE (3 - 2023-2 5 season) 2023 08/13/2020, 07/16/2020 HEPATITIS A VACCINES Aged Out No long er eligible based on patient's age to complete this topic HIB VACCINES Aged Out No longer eligi ble based on patient's age to complete this topic MENINGOCOCCAL VACCINES (ACWY) Aged Out No longer eligible based on patient's age to complete this topic MENINGOCOCCAL VACCINES (B) Aged Out N o longer eligible based on patient's age to complete this topic Medical Devices Not on file Insurance [address] [place] [address] [facility] C[employer] [employer] [facility] [employer] Care Teams Art Critic Relationship Specialty Start Date End Date Live Delcid MD [address] [place] [phone] [email or web address] PCP - General 05/18/16 Additional Source Comments The information contained in this document represents components of the legal health record. It is not the complete legal health record.[facility]
== END 2024-12-26 12:44 | disposition home or self-care (01) ==
PROVIDERS: PCP Internal Medicine; Visit Provider Nurse Practitioner Family
DX: M54.12 Radiculopathy, cervical region (principal)

== ENCOUNTER → 2024-12-26 11:15 | Outpatient (BNVA) | payer OTHER, SELFPAY | PROVIDERS: PCP Internal Medicine; Visit Provider Nurse Practitioner Family | DX: M54.12 Radiculopathy, cervical region (principal) | CPT/HCPCS: 99212 ==